=== PATIENT | male | born 1930 | race Caucasian/White ===

== ENCOUNTER 2019-11-13 10:42 | Day surgery (SDC) | payer MEDICARE ==
[2019-11-13] VITALS (10 sets, daily range): BP systolic 95–133; BP diastolic 71–89; PULSE 66–98; TEMP 97.9
[~2019-11-13] VITALS: Ht 177.8 cm; Wt 74.6 kg
[2019-11-13 11:30] LABS: MEAN CELL VOLUME 95 fl (80.0-100.0); MEAN CORPUSCULAR HGB CONC 33 g/dl (33.0-37.0); MEAN PLATELET VOLUME 10.1 fl (7.4-10.4); PLATELET COUNT 142 K/mm3 (130-400); RED BLOOD COUNT 3.16 M/mm3 (4.20-5.60)
[2019-11-13] MEDS ORDERED: JARDIANCE25 PO (11:31)
[2019-11-13 11:32] LABS: HEMATOCRIT 30.1 % (42.0-52.0); HEMOGLOBIN 9.9 g/dl (13.5-18.0); MEAN CORPUSCULAR HEMOGLOBIN 31 pg (27.0-31.0)
[2019-11-13] MEDS ORDERED: LASIX 40MG TABL40 MG PO (11:32)
[2019-11-13] MEDS ORDERED: ZESTRIL2.5 MG PO (11:32)
[2019-11-13] MEDS ORDERED: GLUCOTROL10 MG PO (11:33)
[2019-11-13] MEDS ORDERED: SYNTHROID0.088 MG/T PO (11:34)
[2019-11-13] MEDS ORDERED: TOPROL XL 25MG25 MG PO (11:34)
[2019-11-13] MEDS ORDERED: DIGITEK0.125 MG PO (11:35)
[2019-11-13] MEDS ORDERED: LIPITOR20 MG PO (11:35)
[2019-11-13] MEDS ORDERED: ELIQUIS 2.5 PO (11:35)
[2019-11-13] MEDS ORDERED: CLARITIN 1010 MG/TAB PO (11:36)
[2019-11-13] MEDS ORDERED: GLUCOPHAGE500 MG/TAB PO (11:36)
[2019-11-13 11:38] LABS: INR 1.1 (0.8-3.0); PROTHROMBIN TIME 12.3 SECONDS (9.7-12.8)
[2019-11-13] MEDS ORDERED: [UNRECOGNIZED DRUG - OTHER] PO (11:38)
[2019-11-13 11:41] LABS: PARTIAL THROMBOPLASTIN TIME 32.1 SECONDS (26.0-37.0)
[2019-11-13 11:44] LABS: CALCIUM 8.9 mg/dL (8.4-10.2); CREATININE, serum 2.25 (0.66-1.25)
== END 2019-11-13 19:57 | disposition home or self-care (01) ==
LOC: COL.CAR 10:42
PROVIDERS: Internal Medicine Interventional Cardiology
DX: I50.22 Chronic systolic (congestive) heart failure (principal); I48.11 Longstanding persistent atrial fibrillation; I25.10 Atherosclerotic heart disease of native coronary artery without angina pectoris; Z95.0 Presence of cardiac pacemaker; Z79.899 Other long term (current) drug therapy; Z88.0 Allergy status to penicillin
CPT/HCPCS: C1760; C1769; C1894; J1644; J1940; J2250; J3010; Q9967

== ENCOUNTER 2019-12-11 12:39 | Day surgery (SDC) | payer MEDICARE ==
[2019-12-11] VITALS (13 sets, daily range): BP systolic 97–128; BP diastolic 69–93; PULSE 66–98; TEMP 97.7
[~2019-12-11] VITALS: Ht 177.8 cm; Wt 76.7 kg
[~2019-12-11 12:39] MED LIST: CLARITIN 1010 MG/TAB PO; DIGITEK0.125 MG PO; ELIQUIS 2.5 PO; GLUCOPHAGE500 MG/TAB PO; GLUCOTROL10 MG PO; JARDIANCE25 PO; LASIX 40MG TABL40 MG PO; LIPITOR20 MG PO; SYNTHROID0.088 MG/T PO; TOPROL XL 25MG25 MG PO; ZESTRIL2.5 MG PO; [UNRECOGNIZED DRUG - OTHER] PO
[2019-12-11 13:35] LABS: HEMOGLOBIN 10.3 g/dl (13.5-18.0); MEAN CELL VOLUME 96 fl (80.0-100.0); MEAN CORPUSCULAR HEMOGLOBIN 31 pg (27.0-31.0); MEAN CORPUSCULAR HGB CONC 33 g/dl (33.0-37.0); MEAN PLATELET VOLUME 10.8 fl (7.4-10.4); PLATELET COUNT 152 K/mm3 (130-400); RED BLOOD COUNT 3.31 M/mm3 (4.20-5.60); REDCELL DISTRIBUTION WIDTH-CV 14.6 % (11.5-14.5)
[2019-12-11 13:38] LABS: HEMATOCRIT 31.6 % (42.0-52.0)
[2019-12-11 13:40] LABS: INR 1.2 (0.8-3.0)
[2019-12-11 13:45] LABS: CALCIUM 9.1 mg/dL (8.4-10.2); CREATININE, serum 2.05 (0.66-1.25); POTASSIUM 4.1 mmol/L (3.4-5.0)
--- NOTE | 2019-12-11 14:26 | NUR ---
SEE MERGE DOCUMENTATION FOR MEDICATION ADMINISTRATION AND INTRA/POST PROCEDURE SEDATION ASSESSMENTS.
--- NOTE | 2019-12-11 18:56 | NUR ---
Discharge instructions given to pt.Pt verbalizes understanding.INT removed,catheter tip intact.Pt escorted out via wheelchair by this nurse.
== END 2019-12-11 19:00 | disposition home or self-care (01) ==
LOC: COL.CAR 12:39
PROVIDERS: Internal Medicine Interventional Cardiology
DX: I25.10 Atherosclerotic heart disease of native coronary artery without angina pectoris (principal); I50.22 Chronic systolic (congestive) heart failure; Z79.84 Long term (current) use of oral hypoglycemic drugs; E78.5 Hyperlipidemia, unspecified; Z79.01 Long term (current) use of anticoagulants; Z95.1 Presence of aortocoronary bypass graft; I48.91 Unspecified atrial fibrillation; Z87.891 Personal history of nicotine dependence; Z90.79 Acquired absence of other genital organ(s); Z88.0 Allergy status to penicillin; Z20.828 Contact with and (suspected) exposure to other viral communicable diseases
CPT/HCPCS: J1644; J2250; Q9967

== ENCOUNTER → 2020-01-29 | Outpatient (CLI) | payer MEDICARE ==
[2020-01-25 16:23] LABS: TROPONIN-I 0.022 ng/mL (0.000-0.035)
[~2020-01-29] MED LIST changes: +ASPIRIN 81M81 MG/TA2 PO; +NATEGLINIDE60 MG PO; +PRAVACHOL 20MG20 MG PO; +RANEXA 500MG T500 MG PO
== END ==
LOC: ZCOL.LAB 12:31
PROVIDERS: Internal Medicine Interventional Cardiology
DX: R06.02 Shortness of breath (principal)